=== PATIENT | male | born 1940 | race Caucasian/White ===

== ENCOUNTER 2020-05-08 21:28 | Inpatient (IN) ==
[2020-05-09] MEDS ORDERED: Acetaminophen 325 MG TABLET PO PRN ×2 (00:58→17:25)
[2020-05-09] MEDS ORDERED: Naloxone 0.4 MG/ML INJ IVP PRN (00:58)
[2020-05-09] MEDS ORDERED: Ondansetron 4 MG/2 ML VIAL IVP PRN (00:58)
[2020-05-09] MEDS: Azithromycin 500 MG in 0.9 % Sodium Chloride 250 ML IVPB SCH (01:42)
[2020-05-09] MEDS: Ringers Solution, Lactated 1,000 ML IVC SCH ×2 (01:42→09:08)
[2020-05-09 05:17] LABS: Basophils % 0.5 %; Eosinophils # 0.2 K/mcL (0.0-0.6); Eosinophils % 2.2 %; Hemoglobin 11.6 g/dL (12.9-16.9); Immature Granulocytes % 0.4 % (0-4); Lymphocytes # 0.8 K/mcL (0.6-4.6); Lymphocytes % 10.3 %; Mean Corpuscular HGB Conc 30.5 g/dL (31.6-35.5); Mean Corpuscular Hemoglobin 28.4 pg (28.0-33.3); Mean Corpuscular Volume 92.9 fL (83.0-100.0); Mean Platelet Volume 9.3 fL (9.4-12.4); Monocytes # 0.8 K/mcL (0.0-1.3); Monocytes % 9.2 %; Neutrophils # 6.3 K/mcL (1.6-8.9); Platelet Count 179 K/mcL (140-400); Red Blood Count 4.09 M/mcL (4.19-5.50); Red Cell Distribution Width 13.2 % (11.5-14.5); Segmented Neutrophils % 77.4 %; White Blood Count 8.2 K/mcL (4.3-11.1)
[2020-05-09] MEDS: *HR* Enoxaparin 30 MG/0.3 ML SYRINGE SQ SCH (05:19)
[2020-05-09 05:40] LABS: Magnesium 2.1 mg/dL (1.6-2.6); Potassium 3.8 mEq/L (3.5-5.1)
[2020-05-09] MEDS ORDERED: (Omega-3 Fatty Acids [Fish Oil] 300 MG) PO SCH (09:00)
[2020-05-09] MEDS: cefTRIAXone 1,000 MG in Water for inj. (sterile) 10 ML IVP SCH (09:08)
[2020-05-09] MEDS: Loratadine 10 MG TABLET PO SCH (09:08)
[2020-05-09] MEDS: Multivit/Ca/Min/Fe/FA 1 TAB TABLET PO SCH (09:08)
[2020-05-09] MEDS: Cholecalciferol (D-3) 1,000 UNIT (25MCG) TABLET PO SCH (09:08)
[2020-05-09 10:56] LABS: Thyroid Stimulating Hormone 2.666 mcIU/mL (0.340-5.600)
[2020-05-09 12:12] LABS: Folate > 22.3 ng/mL (3.0-16.0); Vitamin B12 104 pg/mL (250-1100)
[2020-05-09] MEDS: Cyanocobalamin (B-12) 1,000 MCG/ML VIAL SQ SCH (18:08)
[2020-05-09] MEDS: Thiamine (B-1) 100 MG TABLET PO SCH ×2 (21:00→21:46)
[2020-05-09] MEDS: QUEtiapine Fumarate 25 MG TABLET PO SCH ×2 (21:00→21:46)
[2020-05-09] MEDS: Gabapentin 100 MG CAPSULE PO SCH ×2 (21:01→21:46)
[2020-05-10] MEDS ORDERED: *HR* LORazepam 2 MG/ML VIAL IVP ONE ×4 (00:35→15:26)
[2020-05-10] MEDS ORDERED: *HR* LORazepam 2 MG/ML VIAL ONE ×2 (00:38→00:44)
[2020-05-10] MEDS: Azithromycin 500 MG in 0.9 % Sodium Chloride 250 ML IVPB SCH (01:41)
[2020-05-10 04:09] LABS: Basophils # 0.1 K/mcL (0.0-0.2); Basophils % 0.6 %; Eosinophils # 0.2 K/mcL (0.0-0.6); Eosinophils % 2.8 %; Hematocrit 40.8 % (37.5-50.1); Hemoglobin 12.4 g/dL (12.9-16.9); Immature Granulocytes % 0.2 % (0-4); Lymphocytes # 0.8 K/mcL (0.6-4.6); Lymphocytes % 9.3 %; Mean Corpuscular HGB Conc 30.4 g/dL (31.6-35.5); Mean Corpuscular Hemoglobin 28.6 pg (28.0-33.3); Mean Platelet Volume 9.3 fL (9.4-12.4); Monocytes # 0.8 K/mcL (0.0-1.3); Neutrophils # 6.6 K/mcL (1.6-8.9); Platelet Count 161 K/mcL (140-400); Red Blood Count 4.34 M/mcL (4.19-5.50); Red Cell Distribution Width 13.2 % (11.5-14.5); Segmented Neutrophils % 78.1 %; White Blood Count 8.5 K/mcL (4.3-11.1)
[2020-05-10 04:28] LABS: Albumin 3.5 g/dL (3.5-5.7); Albumin/Globulin Ratio 1.2 (1.1-2.2); Bilirubin,Total 0.9 mg/dL (0.3-1.0); Calcium 9.1 mg/dL (8.6-10.3); Globulin 2.9 g/dL (2.4-3.5); Potassium 3.7 mEq/L (3.5-5.1); Total Protein 6.4 g/dL (6.4-8.9)
[2020-05-10] MEDS: *HR* Enoxaparin 30 MG/0.3 ML SYRINGE SQ SCH (06:22)
[2020-05-10] MEDS: Gabapentin 100 MG CAPSULE PO SCH ×2 (07:56→20:29)
[2020-05-10] MEDS: Thiamine (B-1) 100 MG TABLET PO SCH ×3 (07:56→20:29)
[2020-05-10] MEDS: Loratadine 10 MG TABLET PO SCH (07:56)
[2020-05-10] MEDS: Multivit/Ca/Min/Fe/FA 1 TAB TABLET PO SCH (07:56)
[2020-05-10] MEDS: Cholecalciferol (D-3) 1,000 UNIT (25MCG) TABLET PO SCH (07:56)
[2020-05-10] MEDS: cefTRIAXone 1,000 MG in Water for inj. (sterile) 10 ML IVP SCH (08:03)
[2020-05-10] MEDS: Cyanocobalamin (B-12) 1,000 MCG/ML VIAL SQ SCH (08:03)
[2020-05-10] MEDS ORDERED: Cyanocobalamin (B-12) 1,000 MCG TABLET PO SCH (09:00)
[2020-05-10] MEDS: Ringers Solution, Lactated 1,000 ML IVC SCH (16:57)
[2020-05-10] MEDS: QUEtiapine Fumarate 25 MG TABLET PO SCH (20:29)
[2020-05-10] MEDS ORDERED: Acetaminophen 650 MG RECTAL SUPP RC PRN (22:27)
[2020-05-11] MEDS: Azithromycin 500 MG in 0.9 % Sodium Chloride 250 ML IVPB SCH (01:03)
[2020-05-11 02:05] LABS: Basophils # 0.1 K/mcL (0.0-0.2); Basophils % 0.6 %; Eosinophils # 0.2 K/mcL (0.0-0.6); Eosinophils % 2.9 %; Hematocrit 41.6 % (37.5-50.1); Immature Granulocytes % 0.3 % (0-4); Lymphocytes # 0.9 K/mcL (0.6-4.6); Mean Corpuscular HGB Conc 31.3 g/dL (31.6-35.5); Mean Corpuscular Volume 89.7 fL (83.0-100.0); Mean Platelet Volume 9.3 fL (9.4-12.4); Monocytes # 0.8 K/mcL (0.0-1.3); Monocytes % 10.2 %; Neutrophils # 5.9 K/mcL (1.6-8.9); Platelet Count 188 K/mcL (140-400); Red Blood Count 4.64 M/mcL (4.19-5.50); Red Cell Distribution Width 13.2 % (11.5-14.5); White Blood Count 7.9 K/mcL (4.3-11.1)
[2020-05-11 02:31] LABS: BUN/Creatinine Ratio 15 (6-26); Blood Urea Nitrogen 19 mg/dL (8-23); Calcium 9.1 mg/dL (8.6-10.3); Carbon Dioxide 22 mEq/L (23-29); Chloride 104 mEq/L (98-107); Creatine Kinase 491 Units/L (30-223); Glucose 67 mg/dL (70-105); Osmolality,Calculated 285 (280-300); Sodium 137 mEq/L (136-145); eGFR For African Americans > 60 (> 60); eGFR For Non-African Americans 53 (> 60)
[2020-05-11] MEDS: Ringers Solution, Lactated 1,000 ML IVC SCH ×3 (05:01→15:42)
[2020-05-11] MEDS: *HR* Enoxaparin 30 MG/0.3 ML SYRINGE SQ SCH (05:36)
[2020-05-11] MEDS: cefTRIAXone 1,000 MG in Water for inj. (sterile) 10 ML IVP SCH (09:08)
[2020-05-11] MEDS: Cyanocobalamin (B-12) 1,000 MCG/ML VIAL SQ SCH (09:09)
[2020-05-11] MEDS ORDERED: D5% in Water 1,000 ML IVC PRN (10:53)
[2020-05-11] MEDS ORDERED: Dextrose Gel 15 GM/37.5 ML TUBE PO PRN ×2 (10:53)
[2020-05-11] MEDS: Thiamine (B-1) 100 MG TABLET PO SCH ×3 (11:10→21:32)
[2020-05-11] MEDS: Gabapentin 100 MG CAPSULE PO SCH ×3 (11:10→21:32)
[2020-05-11] MEDS: *HR* Dextrose 50 % in Water (Vial) 50 ML VIAL IVP PRN (12:23)
[2020-05-11] MEDS: QUEtiapine Fumarate 25 MG TABLET PO SCH (21:32)
[2020-05-12] MEDS: Azithromycin 500 MG in 0.9 % Sodium Chloride 250 ML IVPB SCH (01:02)
[2020-05-12] MEDS: *HR* Dextrose 50 % in Water (Vial) 50 ML VIAL IVP PRN (05:46)
[2020-05-12] MEDS ORDERED: *HR* Enoxaparin 40 MG/0.4 ML SYRINGE SQ SCH (06:00)
[2020-05-12] MEDS: Thiamine (B-1) 100 MG TABLET PO SCH ×3 (07:52→20:10)
[2020-05-12] MEDS: cefTRIAXone 1,000 MG in Water for inj. (sterile) 10 ML IVP SCH (07:52)
[2020-05-12] MEDS: Gabapentin 100 MG CAPSULE PO SCH (07:52)
[2020-05-12 09:04] LABS: BUN/Creatinine Ratio 13 (6-26); Blood Urea Nitrogen 17 mg/dL (8-23); Calcium 9.4 mg/dL (8.6-10.3); Carbon Dioxide 24 mEq/L (23-29); Chloride 103 mEq/L (98-107); Glucose 109 mg/dL (70-105); Osmolality,Calculated 286 (280-300); Phosphorous 2.1 mg/dL (2.7-4.5); Potassium 3.6 mEq/L (3.5-5.1); Sodium 137 mEq/L (136-145); eGFR For African Americans > 60 (> 60); eGFR For Non-African Americans 51 (> 60)
[2020-05-12] MEDS ORDERED: Ringers Solution, Lactated 500 ML IVC SCH (10:15)
[2020-05-12] MEDS: Ringers Solution, Lactated 1,000 ML IVC SCH ×3 (11:41→20:13)
[2020-05-13] MEDS: Azithromycin 500 MG in 0.9 % Sodium Chloride 250 ML IVPB SCH ×2 (02:09→23:40)
[2020-05-13 03:22] LABS: Calcium 9.4 mg/dL (8.6-10.3); Magnesium 1.9 mg/dL (1.6-2.6); Phosphorous 2.6 mg/dL (2.7-4.5); Potassium 3.6 mEq/L (3.5-5.1)
[2020-05-13] MEDS: Ringers Solution, Lactated 1,000 ML IVC SCH ×4 (04:14→23:41)
[2020-05-13] MEDS ORDERED: Potassium Phosphate 44 MEQ in 0.9 % Sodium Chloride 250 ML IVPB ONE (07:30)
[2020-05-13] MEDS: cefTRIAXone 1,000 MG in Water for inj. (sterile) 10 ML IVP SCH (09:10)
[2020-05-13] MEDS: Thiamine (B-1) 100 MG TABLET PO SCH ×3 (09:11→20:20)
[2020-05-13] MEDS: amLODIPine 5 MG TABLET PO SCH (09:29)
[2020-05-14 05:27] LABS: Calcium 9.4 mg/dL (8.6-10.3); Potassium 4.2 mEq/L (3.5-5.1)
[2020-05-14 05:28] LABS: Phosphorous 3.2 mg/dL (2.7-4.5)
[2020-05-14] MEDS: Thiamine (B-1) 100 MG TABLET PO SCH ×3 (09:03→20:09)
[2020-05-14] MEDS: cefTRIAXone 1,000 MG in Water for inj. (sterile) 10 ML IVP SCH (09:03)
[2020-05-14] MEDS: amLODIPine 5 MG TABLET PO SCH (09:03)
[2020-05-14] MEDS: Ringers Solution, Lactated 1,000 ML IVC SCH ×2 (09:11→20:20)
[2020-05-15 06:19] LABS: BUN/Creatinine Ratio 13 (6-26); Blood Urea Nitrogen 17 mg/dL (8-23); Calcium 9.9 mg/dL (8.6-10.3); Carbon Dioxide 29 mEq/L (23-29); Chloride 102 mEq/L (98-107); Glucose 91 mg/dL (70-105); Osmolality,Calculated 285 (280-300); Potassium 3.7 mEq/L (3.5-5.1); Sodium 137 mEq/L (136-145); eGFR For African Americans > 60 (> 60); eGFR For Non-African Americans 55 (> 60)
[2020-05-15] MEDS: amLODIPine 5 MG TABLET PO SCH (09:12)
[2020-05-15] MEDS: cefTRIAXone 1,000 MG in Water for inj. (sterile) 10 ML IVP SCH (09:12)
[2020-05-15] MEDS: Thiamine (B-1) 100 MG TABLET PO SCH ×3 (09:12→20:28)
[2020-05-15] MEDS: Ringers Solution, Lactated 1,000 ML IVC SCH ×2 (09:22→22:15)
[2020-05-16 05:16] LABS: Calcium 9.6 mg/dL (8.6-10.3); Potassium 3.7 mEq/L (3.5-5.1)
[2020-05-16] MEDS: Ringers Solution, Lactated 1,000 ML IVC SCH (06:44)
[2020-05-16 07:09] VITALS: BP 157/74
[2020-05-16] MEDS: amLODIPine 5 MG TABLET PO SCH (09:20)
[2020-05-16] MEDS: Thiamine (B-1) 100 MG TABLET PO SCH (09:20)
[2020-05-16 10:49] LABS: Adenovirus Not Detected (Not Detect); Bordetella Pertussis Not Detected (Not Detect); Chlamydophila pneumoniae Not Detected (Not Detect); Coronavirus 229E Not Detected (Not Detect); Coronavirus HKU1 Not Detected (Not Detect); Coronavirus NL63 Not Detected (Not Detect); Coronavirus OC43 Not Detected (Not Detect); Human Metapneumovirus Not Detected (Not Detect); Human Rhinovirus/Enterovirus Not Detected (Not Detect); Influenza A Subtype 2009 H1 Not Detected (Not Detect); Influenza B Not Detected (Not Detect); Mycoplasma pneumoniae Not Detected (Not Detect); Parainfluenza Virus 1 Not Detected (Not Detect); Parainfluenza Virus 2 Not Detected (Not Detect); Parainfluenza Virus 3 Not Detected (Not Detect); Parainfluenza Virus 4 Not Detected (Not Detect); Respiratory Syncytial Virus Not Detected (Not Detect); SARS-CoV-2 Not Detected (Not Detect)
== END 2020-05-16 14:58 | DRG 193 ==
LOC: 3ANU → SUATTDRO 22:54 → 2NNU 05-10 01:38 → SUATTDRO 05-10 19:13 → 3ANU 05-13 14:27
PROVIDERS: ADMIT Internal Medicine; ATTEND Family Medicine